=== PATIENT | female | born 1970 | race African-American/Black ===

== ENCOUNTER 2022-09-09 20:31 | Emergency (ER) | payer OTHER ==
[2022-09-09 21:09] VITALS: BP 139/89; PULSE 89; RESP 16; TEMP 97.9; BMI 36.8
[2022-09-09 22:06] LABS: BASO % 1.1 % (0-2.0); EOS % 5.3 % (0-4.5); HEMATOCRIT 37.2 % (32.4-45.2); HEMOGLOBIN 12.3 GM/dL (10.7-15.3); LYMPH % 36.3 % (8-40); MCH 25.1 pg (25.7-33.7); MCHC 33.1 g/dl (32.0-36.0); MEAN CELL VOLUME 75.7 fl (80-96); MEAN PLT VOLUME 8.3 fl (7.5-11.1); MONO % 8.5 % (3.8-10.2); NEUT % 48.8 % (42.8-82.8); PLATELET COUNT 301 10^3/uL (134-434); RBC 4.91 M/mm3 (3.60-5.2); RDW 17.4 % (11.6-15.6)
[2022-09-09 22:09] LABS: EPI CELLS >36 /uL (0-25.1); HYALINE CASTS 3 /uL (0-3.1); URINE APPEARANCE CLOUDY; URINE BACTERIA 34 /uL (0-1359); URINE BILIRUBIN NEGATIVE (NEGATIVE); URINE COLOR ORANGE; URINE GLUCOSE (UA) NEGATIVE (NEGATIVE); URINE KETONE NEGATIVE (NEGATIVE); URINE LEUK ESTERASE TRACE (NEGATIVE); URINE NITRITE NEGATIVE (NEGATIVE); URINE PROTEIN 3+ (NEGATIVE); URINE WBC 57 /uL (0-25.8)
[2022-09-09 22:10] LABS: INR 1.15 (0.83-1.09); PROTHROMBIN TIME (PATIENT) 13.3 SEC (9.7-13.0)
[2022-09-09 22:13] LABS: ACTIVATED PTT 43.5 SECONDS (25.2-36.5)
[2022-09-09 22:28] LABS: ALBUMIN 3.6 g/dl (3.4-5.0); BLOOD UREA NITROGEN 14.2 mg/dL (7-18); CALCIUM 8.9 mg/dL (8.5-10.1)
[2022-09-09 22:31] LABS: CREATININE 0.9 mg/dL (0.55-1.3)
[2022-09-09 22:33] LABS: BILIRUBIN,TOTAL 0.7 mg/dL (0.2-1); TOT PROT 7.8 g/dl (6.4-8.2)
[2022-09-09 23:20] LABS: URINE RBC 15926 /uL (0-23.9)
== END 2022-09-10 01:04 | disposition home or self-care (01) ==
LOC: JER 20:31
DX: N93.9 Abnormal uterine and vaginal bleeding, unspecified (principal); D25.9 Leiomyoma of uterus, unspecified
CPT/HCPCS: 36415; 76830-TC; 80053; 81003; 84703; 85025; 85610; 85730; 86850; 86900; 86901; 87086; 93005; 93010; 99285-25